=== PATIENT | male | born 1995 | race Caucasian/White ===

== ENCOUNTER 2021-02-10 06:09 | Observation (INO) | payer BC ==
[2021-02-07 10:14] LABS: Hemoglobin 14.5 g/dL (13.5-17.5); Mean Corpuscular Hemoglobin 29.2 pg (27.0-33.0); Mean Corpuscular Volume 91.1 fl (81.2-95.1); Mean Platelet Volume 11.1 fl (7.4-10.4); Platelet Count 288 10x3/uL (150-450); RBC Distribution Width 11.9 % (11.5-14.5); Red Blood Cell (RBC) Count 4.97 10x6/uL (4.32-5.72); White Blood Cell (WBC) Count 6.3 10x3/uL (3.5-10.5)
[2021-02-07 21:59] LABS: SARS-CoV-2 PCR by NAA Not Detected (NotDetected)
[2021-02-08 09:15] VITALS: BMI 31.5
[2021-02-09] MEDS: Sodium Chloride 0.65% Nasal 44 ML BOT EA NARE SCH (04:42)
[2021-02-10] MEDS: Sodium Chloride 0.65% Nasal 44 ML BOT EA NARE SCH ×11 (02:25→23:18)
[2021-02-10] MEDS ORDERED: Clindamycin/D5W 900 mg/50 ml Premix Bag ONE (06:31)
[2021-02-10] MEDS ORDERED: Dexamethasone 4 mg/ml Vial ONE (06:31)
[2021-02-10] MEDS ORDERED: Midazolam HCl 2 mg/2 ml Vial ONE ×2 (06:43→07:10)
[2021-02-10] MEDS ORDERED: Fentanyl 100 MCG/2 ML VIAL ONE (06:44)
[2021-02-10] MEDS ORDERED: Lidocaine 1% w/Epinephrine 1:100K 20 ML VIAL ONE (06:59)
[2021-02-10] MEDS ORDERED: Chlorhexidine Gluconate 15 ML UDCUP SSP ONE (06:59)
[2021-02-10] MEDS ORDERED: Hydrocortisone 1% Cream 30 GM TUBE ONE (06:59)
[2021-02-10] MEDS ORDERED: Ketorolac Tromethamine 30 MG/ML VIAL ONE (07:38)
[2021-02-10] MEDS ORDERED: Lidocaine 1% PF 5 ML VIAL ONE (07:38)
[2021-02-10] MEDS ORDERED: Ondansetron PF 4 MG/2 ML Vial ONE (07:38)
[2021-02-10] MEDS ORDERED: PROPOFOL 200 MG/20 ML VIAL ONE (07:38)
[2021-02-10] MEDS ORDERED: Rocuronium Bromide 10 MG/ML (10ML VIAL) ONE (07:38)
[2021-02-10] MEDS ORDERED: AFRIN NASAL MIST 15 ML BOT ONE (08:17)
[2021-02-10] MEDS ORDERED: Fentanyl 250 MCG/5 ML VIAL ONE (08:25)
[2021-02-10] MEDS ORDERED: Promethazine HCl 25 MG/ML VIAL IM PRN (11:36)
[2021-02-10] MEDS ORDERED: Ondansetron HCl/PF 4 MG/2 ML Vial IVP PRN (11:36)
[2021-02-10] MEDS ORDERED: Promethazine HCl 25 MG/ML VIAL IVPB PRN (11:36)
[2021-02-10] MEDS ORDERED: HYDROmorphone 2 MG/ML VIAL SLOW IVP PRN (11:36)
[2021-02-10] MEDS ORDERED: Morphine 4 MG/ML VIAL IV PRN (12:11)
[2021-02-10] MEDS ORDERED: Promethazine HCl 12.5 MG in Sodium Chloride 0.9% 50 ML IVPB PRN (12:29)
[2021-02-10] MEDS: D5 0.9% NS w/ 20 mEq KCl 1,000 ML IV SCH (14:20)
[2021-02-10] MEDS: HYDROcodone/Acetaminophen 5/325 mg Tablet PO PRN ×2 (14:21→21:06)
[2021-02-10] MEDS: Chlorhexidine Gluconate 15 ML UDCUP SSP SCH ×2 (14:21→21:09)
[2021-02-10] MEDS: Dexamethasone 4 mg/ml Vial SLOW IVP SCH ×2 (14:21→21:15)
[2021-02-10] MEDS: Clindamycin/D5W 900 MG in Premix Bag 1 BAG IVPB SCH ×2 (16:59→23:16)
[2021-02-10] MEDS: Ibuprofen 800 MG TAB PO SCH ×2 (17:00→23:16)
[2021-02-10] MEDS: Ondansetron PF 4 MG/2 ML Vial IVP SCH ×2 (18:34→21:05)
[2021-02-10] MEDS: Oxymetazoline HCl 0.05% (30 ML BOT) NS SCH (21:12)
[2021-02-11] MEDS: Sodium Chloride 0.65% Nasal 44 ML BOT EA NARE SCH ×7 (01:37→10:31)
[2021-02-11] MEDS: D5 0.9% NS w/ 20 mEq KCl 1,000 ML IV SCH ×2 (01:37→04:39)
[2021-02-11] MEDS: Ondansetron PF 4 MG/2 ML Vial IVP SCH ×2 (02:37→10:31)
[2021-02-11] MEDS: Ibuprofen 800 MG TAB PO SCH ×2 (04:39→10:30)
[2021-02-11] MEDS: Dexamethasone 4 mg/ml Vial SLOW IVP SCH (05:56)
[2021-02-11] MEDS: Oxymetazoline HCl 0.05% (30 ML BOT) NS SCH (08:23)
[2021-02-11] MEDS: Clindamycin/D5W 900 MG in Premix Bag 1 BAG IVPB SCH (08:23)
[2021-02-11] MEDS: Chlorhexidine Gluconate 15 ML UDCUP SSP SCH (08:23)
[2021-02-11 08:35] VITALS: BP 128/81; TEMP 98.9
[2021-02-11] MEDS: HYDROcodone/Acetaminophen 5/325 mg Tablet PO PRN (10:30)
== END 2021-02-11 10:35 | disposition home or self-care (01) ==
LOC: SDC 06:09 → SURG A 12:59
PROVIDERS: ADMIT Dentist Oral and Maxillofacial Surgery; ATTEND Dentist Oral and Maxillofacial Surgery
PROC: 0NSR04Z Reposition Maxilla with Internal Fixation Device, Open Approach (ICD-10-PCS; principal; 2021-02-11)
PROC: 0NUR0KZ Supplement Maxilla with Nonautologous Tissue Substitute, Open Approach (ICD-10-PCS; 2021-02-11)
DX: M26.02 Maxillary hypoplasia (principal); K00.5 Hereditary disturbances in tooth structure, not elsewhere classified; Z20.822 Contact with and (suspected) exposure to COVID-19
CPT/HCPCS: 85027; 86850; 86900; 86901; 96365; 96375; 96376; C1713; C1776; G0378; J1100; J1885; J2250; J2270; J2405; J2704; J3010; J3480; J3490; U0003; U0005